=== PATIENT | male | born 1980 | race Caucasian/White ===

== ENCOUNTER 2018-04-26 11:16 | Emergency (ER) | payer OTHER ==
[~2018-04-26] VITALS: Ht 170.2 cm; Wt 68.0 kg
[~2018-04-26 11:16] MED LIST: BACTRIM DS TAB1 EACH PO; NOHOMEMEDICATIONS; PREDNISONE50 MG PO
[2018-04-26] MEDS ORDERED: CLEOCIN HCL150 MG PO (11:32)
[2018-04-26 11:54] VITALS: BP 135/91
== END 2018-04-26 12:10 | disposition home or self-care (01) ==
LOC: M.ERS 11:16
DX: L03.113 Cellulitis of right upper limb (principal)

== ENCOUNTER 2018-04-27 01:29 | Emergency (ER) | payer OTHER ==
[~2018-04-27] VITALS: Ht 170.2 cm; Wt 68.0 kg
[~2018-04-27 01:29] MED LIST changes: +CLEOCIN HCL150 MG PO
[2018-04-27 02:39] VITALS: BP 140/95
== END 2018-04-27 02:40 | disposition home or self-care (01) ==
LOC: M.ERS 01:29
DX: L03.114 Cellulitis of left upper limb (principal)